=== PATIENT | male | born 1995 | race Caucasian/White ===

== ENCOUNTER 2021-05-07 09:24 | Emergency (ER) | payer SELFPAY ==
[2021-05-07 09:32] VITALS: BP 149/83; PULSE 94; RESP 19; TEMP 36.9; O2SAT 97
[2021-05-07 09:59] VITALS: BP 142/87; PULSE 87; RESP 16; O2SAT 97
--- NOTE | 2021-05-07 10:14 | W.ED.EXTPRO ---
HPI - Extremity Problem General: Chief complaint: Extremity Problem,Nontraumatic Stated complaint: Chest pains going into back Time Seen by Provider: 05/07/21 09:45 Source: patient Mode of arrival: ambulatory History of Present Illness: HPI Narrative: pt was driving to work this am and developed pain in right shoulder Complaint: extremity pain Location: right and upper extremity Quality: aching Associated symptoms: Reports chest pain Review of Systems General: Reports: 10 or more systems reviewed and unremarkable except in HPI and below Card: Reports: chest pain [facility] ED PFSH: Social History Smoking and tobacco status: never smoked Quit status (tobacco): not considering quitting Alcohol intake: never Physical Exam Chest: COMMONS NORMALS: normal inspection of the chest Breast/axilla inspection: Yes no chest deformity, asymmetry, normal contours, no nodules, masses, tenderness Cardio: COMMON NORMALS: regular rate RATE: regular rate Course ED course: Pt presents to ER with CP since 629. Pt has hx of CP and NE x 2. He states they were stress induced. He has chronic reflux and does not sleep well. He is overweight and has difficulty losing weight; all of which could be contributing factors to his present discomfort. Due to his health hx and changes in EKG, non acute it is important to rule out acute NE. Pt will be monitored for serial ekg and we will do CP protocol as well as protonix for his severe and chronic reflux. Follow ups with GI and Cardiology will be necessary. Reevaluation(s): Reevaluation #1: initial trop is 6, Dr. Carney on and I discussed pt findings and health hx. We awaiting pt second troponin. Time: 12:45 Reevaluation #2: Pt CP is resolved after protonix. Second EKG and troponin are both negative. WE will proceed with DC at this time. Pt follow up with GI specialist and Cardiology. Time: 13:28 Vital Signs: Vital signs: Vital Signs Temperature 98.4 F 05/07/21 09:32 Pulse Rate 86 05/07/21 12:41 Respiratory Rate 18 05/07/21 12:41 Blood Pressure 104/47 05/07/21 12:41 Pulse Oximetry 97 05/07/21 12:41 MDM - Extremity (Nontraumatic) Lab Data: Attestation: I reviewed the patient's lab results. Labs: Lab Results 05/07/21 05/07/21 05/07/21 Range/Units 09:55 09:55 09:55 WBC 5.4 (4.0-10.0) 10^3/ uL RBC 4.87 (4.1-5.3) 10^6/u L Hgb 14.5 (11.7-16.6) g/dL Hct 43.9 (42.0-52.0) % MCV 90.1 (80-94) fl MCH 29.8 (28.0-34.0) pg MCHC 33.0 (30.0-36.0) g/dL RDW 12.4 (12.1-15.1) % Plt Count 199 (130-400) 10^3/c mm MPV 11.1 H (7.4-10.4) fL Neut % (Auto) 58.6 % Lymph % (Auto) 25.8 % [place] % (Auto) 9.9 % Eos % (Auto) 3.7 % Baso % (Auto) 0.7 % Neut # (Auto) 3.13 (1.8-7.7) 10^3/u L Lymph # (Auto) 1.4 (0.8-4.8) 10^3/u L [place] # (Auto) 0.5 (0.2-0.9) 10^3/u L Eos # (Auto) 0.2 (0.0-0.8) 10^3/u L Baso # (Auto) 0.0 (0.0-0.1) 10^3/u L Nucleated RBC % (a uto) 0 % Nucleated RBCs # 0.0 /100WBC Sodium 138 (136-145) mmol/L Potassium 4.3 (3.5-5.1) mmol/L Chloride 102 (98-107) mmol/L Carbon Dioxide 24 (22-29) mmol/L Anion Gap 16.3 (5-19) BUN 9 (6-20) mg/dL Creatinine 0.9 (0.7-1.2) mg/dL GFR Calculation 101.2 (90-130) mL/min Glucose 90 (65-115) mg/dL Calculated Osmolal ity 284 L (285-295) mOsm/k g Calcium 8.8 (8.5-10.5) mg/dL Total Bilirubin 0.4 (0.15-1.2) mg/dL AST 23 (0-40) U/L ALT 35 (0-41) U/L Alkaline Phosphata se 66 (40-130) IU/L Troponin T Baselin e 6 (0-15) ng/L Troponin T 120 Min [place] (0-15) ng/L Delta Troponin T (0-10) ABS# Total Protein 6.9 (6.6-8.7) g/dL Albumin 4.2 (3.5-5.2) g/dL Globulin 2.7 (1.3-4.6) g/dL 05/07/21 Range/Units 11:55 WBC (4.0-10.0) 10^3/ uL RBC (4.1-5.3) 10^6/u L Hgb (11.7-16.6) g/dL Hct (42.0-52.0) % MCV (80-94) fl MCH (28.0-34.0) pg MCHC (30.0-36.0) g/dL RDW (12.1-15.1) % Plt Count (130-400) 10^3/c mm MPV (7.4-10.4) fL Neut % (Auto) % Lymph % (Auto) % [place] % (Auto) % Eos % (Auto) % Baso % (Auto) % Neut # (Auto) (1.8-7.7) 10^3/u L Lymph # (Auto) (0.8-4.8) 10^3/u L [place] # (Auto) (0.2-0.9) 10^3/u L Eos # (Auto) (0.0-0.8) 10^3/u L Baso # (Auto) (0.0-0.1) 10^3/u L Nucleated RBC % (a uto) % Nucleated RBCs # /100WBC Sodium (136-145) mmol/L Potassium (3.5-5.1) mmol/L Chloride (98-107) mmol/L Carbon Dioxide (22-29) mmol/L Anion Gap (5-19) BUN (6-20) mg/dL Creatinine (0.7-1.2) mg/dL GFR Calculation (90-130) mL/min Glucose (65-115) mg/dL Calculated Osmolal ity (285-295) mOsm/k g Calcium (8.5-10.5) mg/dL Total Bilirubin (0.15-1.2) mg/dL AST (0-40) U/L ALT (0-41) U/L Alkaline Phosphata se (40-130) IU/L Troponin T Baselin e (0-15) ng/L Troponin T 120 Min [place] 6.00 (0-15) ng/L Delta Troponin T 0 (0-10) ABS# Total Protein (6.6-8.7) g/dL Albumin (3.5-5.2) g/dL Globulin (1.3-4.6) g/dL Imaging Data^: CXR: Radiologist's impression: [address] [address] XRay Report Signed Patient: Sixto Edwards Unit #: [id number] : 1995 Age/Sex: 25 / M ADM Date: 05/07/21 Loc: ER Room/Bed: Attending Dr: Ordering Provider/Ordering MD: Bridget Mcdowell NP Date of Service: 05/07/21 Procedure(s): XR chest 1V portable [id number] Accession Number(s): [id number] Report Number: [id number] WS: [id number] Portable AP upright chest, 05/07/2021 Clinical Data: cp Comparison: Portable chest, 02/07/2017. Findings: No nodules, masses or effusions are seen. The heart is normal. The pulmonary vascularity is not increased. No pneumonia or pneumothorax is seen. Monitor leads are on the chest wall. XR/XR chest 1V portable [id number] Impression: Negative chest. Dictated By: Rosemarie Parkinson MD Signed By: Rosemarie Parkinson MD Signed Date/Time: 05/07/21 1103 DD/ 1102 Discharge Plan Discharge Clinical Impression: Chest pain due to GERD Condition: Stable Prescriptions: New pantoprazole [Protonix] 40 mg tablet,delayed release (DR/EC) 40 mg PO DAILY Qty: 20 RF: 0 Discharge Orders: Discharge ED (Routine); Ordered 05/07/21 Ordered By: Bridget Mcdowell Referrals: Ari Figueroa MD [Physician] - (SCOPE; GERD; BARIATRIC SURGERY) David Rosa MD [Physician] - Jonah Duff FNP [Primary Care Provider] - Discharge Diet: Advance as tolerated Discharge Activity: Increase activity as tolerated Activity Restrictions/Additional Instructions: ELIMINATE GLUTEN AND DAIRY, ACIDIC FOODS, COFFEE, CAFFEINE, SODA EAT WHOLE ORGANIC FOODS SLEEP at an incline Stress reduction You have 6 children to be healthy for! Please return immediately for worsening in symptoms. Stand Alone Forms: Work/School Release Coding Level of Care Code ED Compounding And Finishing Supervisor for Chg Fwd Exam Expanded Problem Focused
--- NOTE | 2021-05-07 10:25 | XR_ITS ---
WS: [id number] Portable AP upright chest, 05/07/2021 Clinical Data: cp Comparison: Portable chest, 02/07/2017. Findings: No nodules, masses or effusions are seen. The heart is normal. The pulmonary vascularity is not increased. No pneumonia or pneumothorax is seen. Monitor leads are on the chest wall. XR/XR chest 1V portable [id number] Impression: Negative chest.
--- NOTE | 2021-05-07 10:26 | ECG_ITS ---
[facility] Test Date: 2021-05-07 Pat Name: Sixto Edwards Department: Room: Gender: Male Campus Coordinator: : 1995 Requested By: Bridget Mcdowell Order Number: [id number] Keenan MD: Carlos Gusman M.D. Measurements Intervals [place] Rate: 76 P: 41 VA: 160 QRS: 45 QRSD: 91 T: -25 QT: 370 QTc: 418 Interpretive Statements SINUS RHYTHM WITH SINUS ARRHYTHMIA ST DEVIATION AND MODERATE T-WAVE ABNORMALITY, CONSIDER INFERIOR ISCHEMIA [-0.1+ mV T-WAVE IN II/aVF] Compared to ECG 05/07/2021 09:42:34 No significant changes Electronically Signed On 05-07-2021 19:32:18 CDT by Carlos Gusman M.D. [id number]
[2021-05-07] MEDS: aspirin 325 mg Tablet PO (10:34)
[2021-05-07] MEDS: pantoprazole 40 mg SDV IVP (10:34)
[2021-05-07 10:39] VITALS: BP 106/76; PULSE 89; RESP 18; O2SAT 97
[2021-05-07 10:42] LABS: Basophils % 0.7 %; Eosinophils # 0.2 10^3/uL (0.0-0.8); Eosinophils % 3.7 %; Hematocrit 43.9 % (42.0-52.0); Hemoglobin 14.5 g/dL (11.7-16.6); Lymphocytes # 1.4 10^3/uL (0.8-4.8); Lymphocytes % 25.8 %; Mean Corpuscular Hemoglobin 29.8 pg (28.0-34.0); Mean Corpuscular Volume 90.1 fl (80-94); Mean Platelet Volume 11.1 fL (7.4-10.4); Monocytes # 0.5 10^3/uL (0.2-0.9); Monocytes % 9.9 %; Neutrophils # 3.13 10^3/uL (1.8-7.7); Neutrophils % 58.6 %; Nucleated Red Blood Cells % 0 %; Platelet Count 199 10^3/cmm (130-400); Red Blood Count 4.87 10^6/uL (4.1-5.3); Red Cell Distribution Width 12.4 % (12.1-15.1); White Blood Count 5.4 10^3/uL (4.0-10.0)
[2021-05-07 10:50] LABS: Alanine Aminotransferase 35 U/L (0-41); Albumin Level 4.2 g/dL (3.5-5.2); Alkaline Phosphatase 66 IU/L (40-130); Anion Gap 16.3 (5-19); Aspartate Amino Transferase 23 U/L (0-40); Blood Urea Nitrogen 9 mg/dL (6-20); Calcium 8.8 mg/dL (8.5-10.5); Carbon Dioxide 24 mmol/L (22-29); Chloride 102 mmol/L (98-107); Globulin 2.7 g/dL (1.3-4.6); Glomerular Filtration Rate 101.2 mL/min (90-130); Glucose 90 mg/dL (65-115); Osmolality Calculated 284 mOsm/kg (285-295); Potassium 4.3 mmol/L (3.5-5.1); Sodium 138 mmol/L (136-145); Total Bilirubin 0.4 mg/dL (0.15-1.2); Total Protein 6.9 g/dL (6.6-8.7)
[2021-05-07 10:52] LABS: Troponin(5th) Baseline 6 ng/L (0-15)
--- NOTE | 2021-05-07 11:06 | PC.PHAR ---
PT STATES HE TAKES NO RX OR OTC MEDICATIONS
[2021-05-07 12:41] VITALS: BP 104/47; PULSE 86; RESP 18; O2SAT 97
[2021-05-07 13:15] LABS: Troponin 5 2HR Delta 0 ABS# (0-10)
[2021-05-07 13:51] VITALS: BP 122/55; PULSE 86; RESP 16; O2SAT 98
--- NOTE | 2021-05-07 16:26 | ECG_ITS ---
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 Measurements Intervals [place] Rate: 95 P: 66 NC: 159 QRS: 58 QRSD: 94 T: -53 QT: 338 QTc: 426 Interpretive Statements SINUS RHYTHM ST DEVIATION AND MODERATE T-WAVE ABNORMALITY, CONSIDER LATERAL ISCHEMIA [-0.1+ mV T WAVE IN I/aVL/V5/V6] ST DEVIATION AND MODERATE T-WAVE ABNORMALITY, CONSIDER INFERIOR ISCHEMIA [-0.1+ mV T WAVE IN II/aVF] Compared to ECG 02/07/2017 15:49:14 Possible ischemia now present Sinus arrhythmia no longer present ST (T wave) deviation no longer present Early repolarization no longer present T-wave abnormality still present Electronically Signed On 05-07-2021 19:40:16 CDT by Carlos Gusman M.D. [id number]
== END 2021-05-07 13:52 ==
PROVIDERS: Emergency Provider Nurse Practitioner Family; PCP Nurse Practitioner Family
DX: K21.9 Gastro-esophageal reflux disease without esophagitis (principal)
CPT/HCPCS: 36415; 71045; 80053; 84484; 85025; 93005; 96374; 99284; C9113

== ENCOUNTER → 2022-06-27 11:58 | Outpatient (BNVA) | payer SELFPAY | PROVIDERS: Visit Provider Nurse Practitioner Family | DX: J22 Unspecified acute lower respiratory infection (principal); B96.89 Other specified bacterial agents as the cause of diseases classified elsewhere; J02.9 Acute pharyngitis, unspecified | CPT/HCPCS: 87071; 87880 ==

== ENCOUNTER 2023-05-09 20:32 | Emergency (ER) | payer SELFPAY ==
[2023-05-09 20:39] VITALS: BP 155/75; PULSE 98; RESP 20; TEMP 36.7; O2SAT 97; BMI 48.7
--- NOTE | 2023-05-09 20:45 | XRR_ITS ---
PROCEDURE INFORMATION: Exam: XR Chest Exam date and time: 05/09/2023 9:18 PM Age: 27 years old Clinical indication: Pain; Chest pressure; Additional info: Cp TECHNIQUE: Imaging protocol: Radiologic exam of the chest. Views: 1 view. COMPARISON: CR XR chest 1V portable [id number] 05/07/2021 10:26 AM FINDINGS: Lungs: Unremarkable. No consolidation. Pleural spaces: Unremarkable. No pleural effusion. No pneumothorax. Heart/Mediastinum: Unremarkable. No cardiomegaly. Bones/joints: Unremarkable. XR/XR chest 1V portable [id number] IMPRESSION: No change, unremarkable
--- NOTE | 2023-05-09 20:45 | ECG_ITS ---
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 Measurements Intervals [place] Rate: 84 P: 12 MN: 132 QRS: 26 QRSD: 93 T: 241 QT: 355 QTc: 421 Interpretive Statements SINUS RHYTHM MODERATE T-WAVE ABNORMALITY, CONSIDER LATERAL ISCHEMIA [-0.1+ mV T-WAVE IN I/aVL/V5/V6] MODERATE T-WAVE ABNORMALITY, CONSIDER INFERIOR ISCHEMIA [-0.1+ mV T-WAVE IN II/aVF] Compared to ECG 05/07/2021 12:10:59 Sinus arrhythmia no longer present T-wave abnormality still present Possible ischemia still present Electronically Signed On 05-10-2023 20:01:47 CDT by Carlos Gusman M.D. [id number]
--- NOTE | 2023-05-09 20:49 | USR_ITS ---
PROCEDURE INFORMATION: Exam: US Abdomen, Limited; Right Upper Quadrant Exam date and time: 05/09/2023 9:04 PM Age: 27 years old Clinical indication: Abdominal pain; Generalized; Additional info: Abd pain TECHNIQUE: Imaging protocol: Real time ultrasound of the abdomen with image documentation. Limited exam focused on the right upper quadrant. COMPARISON: No relevant prior studies available. FINDINGS: Liver: The liver is enlarged to at least 22 cm and is diffusely echogenic consistent with steatosis. Gallbladder: The gallbladder is somewhat small (patient not NPO) but is large enough for evaluation. No stones or sludge. No surrounding edema. No sonographic Leigh sign. Biliary ducts: The common bile duct measures 2-3 mm which is normal. Pancreas: Limited views of the pancreas are unremarkable. Right kidney: The right kidney measures 11.3 cm and is unremarkable. US/US gall bladder [id number] IMPRESSION: 1. Hepatic steatosis and hepatomegaly. 2. No gallstones or biliary obstruction
[2023-05-09 20:56] VITALS: BP 155/75; PULSE 97; RESP 13; O2SAT 95
[2023-05-09 21:01] LABS: Basophils % 0.3 %; Eosinophils # 0.2 10^3/uL (0.0-0.8); Eosinophils % 2.2 %; Lymphocytes # 2.9 10^3/uL (0.8-4.8); Lymphocytes % 31.3 %; Mean Corpuscular HGB Conc 33.6 g/dL (30-55); Mean Corpuscular Volume 89.4 fl (82-101); Monocytes # 0.7 10^3/uL (0.2-0.9); Monocytes % 7.2 %; Neutrophils # 5.37 10^3/uL (1.8-7.7); Neutrophils % 57.8 %; Nucleated Red Blood Cells % 0 %; Platelet Count 217 10^3/cmm (157-399); Red Cell Distribution Width 12.2 % (12.1-15.1); White Blood Count 9.28 10^3/uL (3.29-11.43)
--- NOTE | 2023-05-09 21:06 | W.ED.CHESTPA ---
HPI - Chest Pain General: Chief Complaint: Chest Pain Stated Complaint: CP Time Seen by Provider: 05/09/23 20:37 Source: patient Mode of arrival: ambulatory Limitations: no limitations History of Present Illness: 27-year-old male states that he has been having right-sided chest pain along with right upper quadrant pain over the last 3 weeks. States pains been sharp in nature worse with eating. He had no nausea or vomiting. States pain is also worse with palpation. He denies any fevers. Associated symptoms: Reports abdominal pain; Deny dyspnea, fever(s), nausea or vomiting Review of Systems Const: Denies: fever(s) or chills ENMT: Denies: throat pain or dental pain Card: Reports: chest pain Resp: Denies: dyspnea GI: Reports: abdominal pain; Denies: nausea, vomiting or diarrhea : Denies: dysuria Musc: Denies: neck pain or back pain Skin/Breast: Denies: rash Neuro: Denies: headache(s) Psych: Denies: depression PFSH ED PFSH: Social History Smoking and tobacco status: current every day smoker cigarettes Packs smoked per day: 0.5 Quit status (tobacco): not considering quitting Alcohol intake: never Substance/Drug Use: never Physical Exam Const: COMMON NORMALS: no acute distress, patient oriented x3 and healthy appearing HENMT: COMMON NORMALS: normocephalic and atraumatic HEAD & SCALP: normocephalic and atraumatic Neck/C-Spine: COMMON NORMALS: full ROM and supple Chest: COMMONS NORMALS: normal inspection of the chest and normal palpation of entire chest wall Resp: COMMON NORMALS: normal respiratory effort, No retractions, No use of accessory muscles and clear to auscultation bilaterally AUSCULTATION: clear to auscultation bilaterally Cardio: COMMON NORMALS: regular rate, regular rhythm and No murmurs present (Cardio) RATE: regular rate RHYTHM: regular rhythm GI: COMMON NORMALS: Normal to inspection, nondistended, normoactive bowel sounds present, Soft to palpation and no masses PALPATION: Yes Soft to palpation and Yes Tenderness to palpation present (GI) Details: RUQ Extremity: COMMON NORMALS: normal to inspection and full ROM Neuro: COMMON NORMALS: patient oriented x3, moves all extremities and no focal motor deficits Psych: COMMON NORMALS: mental status grossly normal, Normal thought process present and cooperative THOUGHT PROCESS: Normal thought process present Skin: COMMON NORMALS: no rashes or lesions noted and no wounds GENERAL SKIN EXAM: no rashes or lesions noted Course Vital Signs: Vital signs: Vital Signs Temperature 98.0 F 05/09/23 20:39 Pulse Rate 97 05/09/23 20:56 Respiratory Rate 16 05/09/23 21:08 Blood Pressure 155/75 05/09/23 20:56 Pulse Oximetry 96 05/09/23 21:08 Oxygen Delivery Me thod Room Air 05/09/23 20:56 MDM - Chest Pain Medical Decision Making Patient presents here with abdominal pain could be gastric related he has Protonix on his med list but states he has not taken it in quite some time we will write him a new prescription Protonix his ultrasound here was normal blood work is normal we will get him follow-up with surgery as no signs of acute coronary event he is return if worsening he understands agrees to plan. Medical Records I reviewed the patient's medical records. Lab Data I reviewed the patient's lab results. 05/09/23 20:55 05/09/23 20:55 Radiology Impressions Chest X-Ray 05/09/23 20:45 IMPRESSION: No change, unremarkable Gallbladder Ultrasound 05/09/23 20:49 IMPRESSION: 1. Hepatic steatosis and hepatomegaly. 2. No gallstones or biliary obstruction Laboratory Results WBC 9.28 10^3/uL (3.29-11.43) 05/09/23 20:55 RBC 4.70 10^6/uL (3.85-5.65) 05/09/23 20:55 Hgb 14.10 g/dL (11.27-16.99) 05/09/23 20:55 Hct 42.0 % (37-53) 05/09/23 20:55 MCV 89.4 fl (82-101) 05/09/23 20:55 MCH 30.0 pg (27-33) 05/09/23 20:55 MCHC 33.6 g/dL (30-55) 05/09/23 20:55 RDW 12.2 % (12.1-15.1) 05/09/23 20:55 Plt Count 217 10^3/cmm (157-399) 05/09/23 20:55 MPV 10.0 fL (7.4-10.4) 05/09/23 20:55 Neut % (Auto) 57.8 % 05/09/23 20:55 Lymph % (Auto) 31.3 % 05/09/23 20:55 [place] % (Auto) 7.2 % 05/09/23 20:55 Eos % (Auto) 2.2 % 05/09/23 20:55 Baso % (Auto) 0.3 % 05/09/23 20:55 Neut # (Auto) 5.37 10^3/uL (1.8-7.7) 05/09/23 20:55 Lymph # (Auto) 2.9 10^3/uL (0.8-4.8) 05/09/23 20:55 [place] # (Auto) 0.7 10^3/uL (0.2-0.9) 05/09/23 20:55 Eos # (Auto) 0.2 10^3/uL (0.0-0.8) 05/09/23 20:55 Baso # (Auto) 0.0 10^3/uL (0.0-0.1) 05/09/23 20:55 Nucleated RBC % (auto) 0 % 05/09/23 20:55 Nucleated RBCs # 0.0 /100WBC 05/09/23 20:55 Sodium 139 mmol/L (136-145) 05/09/23 20:55 Potassium 3.8 mmol/L (3.5-5.1) 05/09/23 20:55 Chloride 101 mmol/L (98-107) 05/09/23 20:55 Carbon Dioxide 28 mmol/L (22-29) 05/09/23 20:55 Anion Gap 13.8 (5-19) 05/09/23 20:55 BUN 10 mg/dL (6-20) 05/09/23 20:55 Creatinine 1.1 mg/dL (0.7-1.2) 05/09/23 20:55 GFR Calculation 79.1 mL/min (90-130) L 05/09/23 20:55 Glucose 97 mg/dL (65-115) 05/09/23 20:55 Calculated Osmolality 287 mOsm/kg (285-295) 05/09/23 20:55 Calcium 9.5 mg/dL (8.5-10.5) 05/09/23 20:55 Total Bilirubin 0.3 mg/dL (0.15-1.2) 05/09/23 20:55 AST 28 U/L (0-40) 05/09/23 20:55 ALT 43 U/L (0-41) H 05/09/23 20:55 Alkaline Phosphatase 52 U/L (40-130) 05/09/23 20:55 Troponin T Baseline 6 ng/L (0-15) 05/09/23 20:55 Troponin T 120 Minute 6.00 ng/L (0-15) 05/09/23 22:32 Total Protein 6.7 g/dL (6.6-8.7) 05/09/23 20:55 Albumin 4.4 g/dL (3.5-5.2) 05/09/23 20:55 Globulin 2.3 g/dL (1.3-4.6) 05/09/23 20:55 Lipase 23 U/L (13-60) 05/09/23 20:55 EKG Data EKG 1: I personally reviewed and interpreted this EKG as follows: EKG interpretation date: 05/09/23 EKG interpretation time: 20:43 Interpretation: nsr hr [address] or t wave abnormalities qrs 90 q tc 391 Discharge Plan Discharge Patient Disposition: Home Clinical Impression: Chest pain, Abdominal pain Condition: Stable Prescriptions: New pantoprazole [Protonix] 40 mg tablet,delayed release (DR/EC) 40 mg PO DAILY Qty: 60 0RF No Action doxycycline hyclate 100 mg capsule 100 mg PO BID 10 Days Qty: 20 0RF Rx Instructions: Take with food albuterol sulfate 90 mcg/actuation HFA aerosol inhaler 2 puff inhalation QID Qty: 8.5 0RF Rx Instructions: 2 puffs inhaled every 4-6 hours as needed Protonix 40 mg tablet,delayed release (DR/EC) 40 mg PO DAILY Qty: 20 0RF Discharge Orders: Discharge ED (Routine); Ordered 05/09/23 Ordered By: Aiden Roberts Referrals: Mann Olsen MD [Physician] - 1-3 days Discharge Diet: Advance as tolerated Discharge Activity: Resume usual activity Patient Instructions: Chest Pain (ED), Abdominal Pain (ED) Coding Level of Care Code ED Technical Customer Support Specialist for Dereje Simon
[2023-05-09 21:08] VITALS: RESP 16; O2SAT 96
[2023-05-09] MEDS: morphine 4 mg/mL SDV 1 mL IVP (21:08)
[2023-05-09] MEDS: ondansetron 2 mg/ML SDV 2 mL 4 MG IVP (21:08)
[2023-05-09 21:24] LABS: Alanine Aminotransferase 43 U/L (0-41); Albumin Level 4.4 g/dL (3.5-5.2); Alkaline Phosphatase 52 U/L (40-130); Anion Gap 13.8 (5-19); Aspartate Amino Transferase 28 U/L (0-40); Blood Urea Nitrogen 10 mg/dL (6-20); Calcium 9.5 mg/dL (8.5-10.5); Carbon Dioxide 28 mmol/L (22-29); Chloride 101 mmol/L (98-107); Globulin 2.3 g/dL (1.3-4.6); Glomerular Filtration Rate 79.1 mL/min (90-130); Glucose 97 mg/dL (65-115); Lipase 23 U/L (13-60); Osmolality Calculated 287 mOsm/kg (285-295); Potassium 3.8 mmol/L (3.5-5.1); Sodium 139 mmol/L (136-145); Total Bilirubin 0.3 mg/dL (0.15-1.2); Total Protein 6.7 g/dL (6.6-8.7)
[2023-05-09 21:26] LABS: Troponin(5th) Baseline 6 ng/L (0-15)
--- NOTE | 2023-05-09 22:45 | ECG_ITS ---
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 Measurements Intervals [place] Rate: 89 P: 33 [place]: 162 QRS: 26 QRSD: 90 T: 238 QT: 344 QTc: 420 Interpretive Statements SINUS RHYTHM ST DEVIATION AND MODERATE T-WAVE ABNORMALITY, CONSIDER LATERAL ISCHEMIA [-0.1+ mV T-WAVE IN I/aVL/V5/V6] ST DEVIATION AND MODERATE T-WAVE ABNORMALITY, CONSIDER INFERIOR ISCHEMIA [-0.1+ mV T-WAVE IN II/aVF] Compared to ECG 05/07/2021 12:10:59 Sinus arrhythmia no longer present T-wave abnormality still present Possible ischemia still present Electronically Signed On 05-10-2023 20:32:04 CDT by Carlos Gusman M.D. [id number] f
[2023-05-09 23:14] LABS: Troponin 5 2HR Delta 0 ABS# (0-10)
[2023-05-09 23:19] VITALS: BP 121/75; PULSE 86; RESP 17; O2SAT 94
--- NOTE | 2023-05-11 09:55 | DCPLANNER ---
Addendum entered by Aysha Wells 05/16/23 14:36: shopper insights manager received the following message from general surgery regarding follow up appointment: Called pt no vm 05/15/23. Mailed pt a letter and fa pack. On 05/12/23 @ 09:17 Elliott Bauman Wrote To General Surgery Front Off Called pt no vm 05/12/23. On 05/11/23 @ 10:02 Elliott Bauman Wrote To General Surgery Front Off Called pt no vm 05/11/23. Pt is self pay Addendum entered by Aysha Wells 05/16/23 14:35: shopper insights manager received the following message from the general surgery clinic regarding follow up appointment. Original Note: shopper insights manager had message to schedule a follow up appointment for patient with general surgery. shopper insights manager sent patients information to the front office staff at general surgery. Patients information will be printed and reviewed. Clinic will call patient with appointment information.
== END 2023-05-09 23:24 | disposition home or self-care (01) ==
PROVIDERS: Emergency Provider Emergency Medicine
DX: R07.9 Chest pain, unspecified (principal); R10.11 Right upper quadrant pain; F17.210 Nicotine dependence, cigarettes, uncomplicated
CPT/HCPCS: 71045; 76705; 80053; 83690; 84484; 85025; 93005; 96374; 96375; 99285; J2270; J2405

== ENCOUNTER 2023-09-03 14:19 | Emergency (ER) | payer SELFPAY ==
--- NOTE | 2023-09-03 14:25 | XRR_ITS ---
PROCEDURE INFORMATION: Exam: XR Right Shoulder Exam date and time: 09/03/2023 2:32 PM Age: 28 years old Clinical indication: Right; Patient HX: RT shoulder pain with limited rom after lifting injury TECHNIQUE: Imaging protocol: Radiologic exam of the right shoulder. Views: 2 or more views. COMPARISON: CR XR chest 1V portable [id number] 05/09/2023 9:18 PM FINDINGS: Bones/joints: No fracture or dislocation. Soft tissues: No acute findings. XR/XR shoulder RT min 2V* [id number] IMPRESSION: No acute findings.
[2023-09-03 14:26] VITALS: BP 150/83; PULSE 85; RESP 17; O2SAT 94
--- NOTE | 2023-09-03 14:48 | ED_ITS ---
HPI - Extremity Problem General: Chief complaint: Extremity Injury, Upper Stated complaint: right shoulder pains Time Seen by Provider: 09/03/23 14:42 Source: patient Mode of arrival: ambulatory Limitations: no limitations History of Present Illness: 28-year-old male states that he is at wo [place] on and was lifting bags out of a can last back was extremely heavy and he did not expect and states he felt a pop in his right shoulder states send right shoulder pain since then. He states he went bowling yesterday and his right shoulder is hurting much worse he rates pain 8 out of 10 worse with movement Associated symptoms: Deny chest pain, fever(s) or rash Review of Systems Const: Denies: fever(s) or chills ENMT: Denies: throat pain or dental pain Card: Denies: chest pain Resp: Denies: dyspnea GI: Denies: abdominal pain Musc: Reports: extremity pain; Denies: neck pain or back pain Skin/Breast: Denies: rash Neuro: Denies: headache(s) PFSH ED PFSH: Social History Smoking and tobacco/nicotine status: current every day tobacco/nicotine user cigarettes Packs smoked per day: 0.5 Quit status (tobacco/nicotine): not considering quitting Alcohol intake: never Substance/Drug Use: never Physical Exam Const: COMMON NORMALS: no acute distress, patient oriented x3 and healthy appearing HENMT: COMMON NORMALS: normocephalic and atraumatic HEAD & SCALP: normocephalic and atraumatic Eye: COMMON NORMALS: conjunctivae normal CONJUNCTIVA: Yes conjunctivae normal Neck/C-Spine: COMMON NORMALS: full ROM and supple Chest: COMMONS NORMALS: normal inspection of the chest Resp: COMMON NORMALS: normal respiratory effort Extremity: COMMON NORMALS: normal to inspection and full ROM NARRATIVE EXTREMITY EXAM: Tenderness over right shoulder right trapezius does have pain with range of motion but does have full range of motion distal pulses sensation intact. Neuro: COMMON NORMALS: patient oriented x3, moves all extremities and no focal motor deficits Psych: COMMON NORMALS: mental status grossly normal, Normal thought process present and cooperative THOUGHT PROCESS: Normal thought process present Skin: COMMON NORMALS: no rashes or lesions noted and no wounds GENERAL SKIN EXAM: no rashes or lesions noted Course Vital Signs: Vital signs: Vital Signs Pulse Rate 85 09/03/23 14:26 Respiratory Rate 17 09/03/23 14:26 Blood Pressure 150/83 09/03/23 14:26 Pulse Oximetry 94 09/03/23 14:26 Oxygen Delivery Me thod Room Air 09/03/23 14:26 MDM - Extremity (Nontraumatic) Medical Decision Making Patient presents here with a right shoulder strain x-rays negative we will place him on Naprosyn and Robaxin will give him follow-up with Ortho he is return if worsening he understands agrees to plan. XR interpretation done by ED provider, pending radiology final review ED provider radiology interpretation(s): xr r shoulder: no acute abnormality Discharge Plan Discharge Patient Disposition: Home Clinical Impression: Right shoulder strain Condition: Stable Prescriptions: New methocarbamol 750 mg tablet 750 mg PO Q6H PRN (Reason: spasms) Qty: 20 0RF naproxen [Naprosyn] 500 mg tablet 500 mg PO BID PRN (Reason: pain) Qty: 20 0RF No Action doxycycline hyclate 100 mg capsule 100 mg PO BID 10 Days Qty: 20 0RF Rx Instructions: Take with food albuterol sulfate 90 mcg/actuation HFA aerosol inhaler 2 puff inhalation QID Qty: 8.5 0RF Rx Instructions: 2 puffs inhaled every 4-6 hours as needed Protonix 40 mg tablet,delayed release (DR/EC) 40 mg PO DAILY Qty: 20 0RF Protonix 40 mg tablet,delayed release (DR/EC) 40 mg PO DAILY Qty: 60 0RF Discharge Orders: Discharge ED (Routine); Ordered 09/03/23 Ordered By: Aiden Roberts Discharge Diet: Advance as tolerated Discharge Activity: Resume usual activity Patient Instructions: Shoulder Sprain (ED), Shoulder Pain (ED) Coding Level of Care Code ED Station Mechanic Apprentice for Dereje Simon
[2023-09-03] MEDS: HYDROcodone-acetaminophen 5-325 mg Tablet 1 TAB PO (14:55)
[2023-09-03 15:06] VITALS: BP 152/80; PULSE 80; O2SAT 98
--- NOTE | 2023-09-04 10:22 | DCPLANNER ---
Message was sent to ortho clinic on 09/04/23 at [facility]. [facility] to contact patient.
== END 2023-09-03 15:08 | disposition home or self-care (01) ==
PROVIDERS: Emergency Provider Emergency Medicine
DX: S46.911A Strain of unspecified muscle, fascia and tendon at shoulder and upper arm level, right arm, initial encounter (principal); F17.210 Nicotine dependence, cigarettes, uncomplicated; X50.0XXA Overexertion from strenuous movement or load, initial encounter
CPT/HCPCS: 73030; 99283

== ENCOUNTER → 2023-11-07 14:00 | Outpatient (BNVA) | payer SELFPAY | PROVIDERS: PCP Nurse Practitioner; Referring Provider Dermatology; Visit Provider Dermatology | DX: Z13.6 Encounter for screening for cardiovascular disorders (principal) | CPT/HCPCS: 80061; 82947; 83036 ==

== ENCOUNTER 2023-11-14 16:04 | Outpatient (CLI) | payer SELFPAY ==
[2023-11-14 17:09] LABS: Basophils # 0.1 10^3/uL (0.0-0.1); Basophils % 0.5 %; Eosinophils # 0.3 10^3/uL (0.0-0.8); Eosinophils % 3.1 %; Hematocrit 47.1 % (37-53); Lymphocytes # 2.4 10^3/uL (0.8-4.8); Lymphocytes % 25.8 %; Mean Corpuscular HGB Conc 32.3 g/dL (30-55); Mean Corpuscular Hemoglobin 29.1 pg (27-33); Mean Corpuscular Volume 90.2 fl (82-101); Mean Platelet Volume 10.4 fL (7.4-10.4); Monocytes # 0.6 10^3/uL (0.2-0.9); Monocytes % 6.9 %; Neutrophils # 5.72 10^3/uL (1.8-7.7); Neutrophils % 62.7 %; Nucleated Red Blood Cells % 0 %; Platelet Count 261 10^3/cmm (157-399); Red Blood Count 5.22 10^6/uL (3.85-5.65); Red Cell Distribution Width 12.9 % (12.1-15.1); White Blood Count 9.12 10^3/uL (3.29-11.43)
[2023-11-14 17:55] LABS: Alanine Aminotransferase 25 U/L (0-41); Albumin Level 4.3 g/dL (3.5-5.2); Alkaline Phosphatase 70 U/L (40-130); Anion Gap 14.3 (5-19); Aspartate Amino Transferase 20 U/L (0-40); Blood Urea Nitrogen 13 mg/dL (6-20); Calcium 9.3 mg/dL (8.5-10.5); Carbon Dioxide 25 mmol/L (22-29); Chloride 103 mmol/L (98-107); Globulin 2.9 g/dL (1.3-4.6); Glomerular Filtration Rate 99.1 mL/min (90-130); Glucose 87 mg/dL (65-115); Osmolality Calculated 285 mOsm/kg (285-295); Potassium 4.3 mmol/L (3.5-5.1); Sodium 138 mmol/L (136-145); Total Bilirubin 0.3 mg/dL (0.15-1.2); Total Protein 7.2 g/dL (6.6-8.7)
[2023-11-14 21:14] LABS: Hepatitis A Antibody IgM Non-Reactive (Nonreactive); Hepatitis B Core AB, Total Non-Reactive (Nonreactive); Hepatitis B Surface AB < 3.5 (11.5-1000); Hepatitis B Surface Antigen Non-Reactive (Nonreactive); Hepatitis C Virus Antibody Non-Reactive (Nonreactive)
[2023-11-17 12:24] LABS: Quantiferon Mitogen 8.11 IU/mL; Quantiferon Nil 0.05 IU/mL; Quantiferon Plus TB1 0.03 IU/mL; Quantiferon Plus TB2 0.06 IU/mL; Quantiferon TB Gold NEGATIVE (NEGATIVE)
== END 2023-11-14 16:05 | disposition home or self-care (01) ==
PROVIDERS: PCP Nurse Practitioner; Visit Provider Dermatology
DX: Z79.899 Other long term (current) drug therapy (principal); L30.9 Dermatitis, unspecified; L40.0 Psoriasis vulgaris
CPT/HCPCS: 36415; 80053; 85025; 86480; 86705; 86706; 86709; 86803; 87340

== ENCOUNTER 2024-07-03 20:47 | Emergency (ER) | payer SELFPAY ==
[2024-07-03 20:51] VITALS: BP 161/107; PULSE 86; RESP 18; TEMP 36.6; O2SAT 98; BMI 45.6
--- NOTE | 2024-07-03 20:52 | XRR_ITS ---
PROCEDURE INFORMATION: Exam: XR Right Shoulder Exam date and time: 07/03/2024 9:38 PM Age: 28 years old Clinical indication: Pain; Shoulder; Right; Additional info: Injury TECHNIQUE: Imaging protocol: Radiologic exam of the right shoulder. Views: 2 or more views. COMPARISON: CR XR shoulder RT min 2V* [id number] 09/03/2023 2:32 PM FINDINGS: Bones/joints: No evidence of acute fracture or dislocation. No erosive disease. No significant degenerative change. Soft tissues: Normal. XR/XR shoulder RT min 2V* [id number] IMPRESSION: No acute bony injury.
[2024-07-03 20:54] VITALS: PULSE 95; O2SAT 95
[2024-07-03] MEDS: orphenadrine 30 mg/mL Inj 2 mL 60 MG IM (21:36)
[2024-07-03] MEDS: ketorolac 60 mg/2 mL INJ IM (21:37)
--- NOTE | 2024-07-03 21:40 | ED_ITS ---
HPI - Extremity Problem General: Chief complaint: Extremity Injury, Upper Stated complaint: Rt Shoulder Pain Time Seen by Provider: 07/03/24 20:55 Source: patient Mode of arrival: ambulatory Limitations: no limitations History of Present Illness: Patient is a 28-year-old male presenting to the emergency department complaining of right shoulder pain beginning this afternoon. He states he was lifting a heavy engine, when he had a sudden pulling sensation to his right shoulder joint. He notes that it radiates up the trapezius muscle also to the posterior aspect of the shoulder. States his range of motion has been limited due to the pain. He has not taken anything for the pain at this time. MD Complaint: joint pain Onset (ago): hour(s) Pain Consistency: constant Location: right and upper extremity (Shoulder) Radiation: proximal Exacerbating factors: range of motion Associated symptoms: Reports no associated symptoms; Deny chest pain, fever(s) or rash Related Data Previous Rx's Medication Instructions Recorded pantoprazole 40 mg tablet,delayed 40 mg PO DAILY #20 tabs 05/07/21 release (Protonix) methocarbamol 750 mg tablet 750 mg PO Q8H 5 days #15 tabs 07/03/24 Allergies Allergy/AdvReac Type Severity Reaction Status Date / Time ibuprofen Allergy Mild ALGY-Hives Verified 10/24/23 14:10 Review of Systems General: Reports: 10 or more systems reviewed and unremarkable except in HPI and below Const: Denies: fever(s) or chills Card: Denies: chest pain Resp: Denies: dyspnea or productive cough GI: Denies: abdominal pain, nausea, vomiting or diarrhea : Denies: flank pain Musc: Reports: joint pain and limited range of motion; Denies: neck pain, back pain, extremity pain, extremity swelling, joint swelling, joint redness, joint warmth or muscle weakness Skin/Breast: Denies: rash Neuro: Denies: headache(s), numbness in extremities or weakness in extremities PFSH ED PFSH: Social History Smoking and tobacco/nicotine status: current every day tobacco/nicotine user cigarettes Packs smoked per day: 0.5 Quit status (tobacco/nicotine): not considering quitting Alcohol intake: never Substance/Drug Use: never Physical Exam Const: COMMON NORMALS: no acute distress, patient oriented x3, no limitations, healthy appearing, alert and well nourished HENMT: COMMON NORMALS: normocephalic and atraumatic HEAD & SCALP: normocephalic and atraumatic Neck/C-Spine: COMMON NORMALS: full ROM, supple and no meningeal signs Resp: COMMON NORMALS: normal respiratory effort and No use of accessory muscles Extremity: COMMON NORMALS: normal to inspection, capillary refill normal, no joint enlargement and no clubbing, cyanosis or edema NARRATIVE EXTREMITY EXAM: Range of motion limited with active abduction of the shoulder as well as flexion and extension at the right shoulder. There is tenderness to palpation of the shoulder joint itself, but this extends up the trapezius and along the posterior scapular spine and along the clavicle. There is no signs of trauma or deformity. Distal radial pulse intact. Distal sensations intact. Neuro: COMMON NORMALS: patient oriented x3, moves all extremities, no focal motor deficits and no sensory deficits noted SENSORIUM/ORIENTATION: Yes alert MENINGEAL SIGNS: Yes no meningeal signs Skin: COMMON NORMALS: no rashes or lesions noted GENERAL SKIN EXAM: no rashes or lesions noted Course Vital Signs: Vital signs: Vital Signs Temperature 97.9 F 07/03/24 20:51 Pulse Rate 86 07/03/24 20:51 Respiratory Rate 18 07/03/24 20:51 Blood Pressure 161/107 07/03/24 20:51 Pulse Oximetry 98 07/03/24 20:51 Oxygen Delivery Me thod Room Air 07/03/24 20:51 MDM - Extremity (Nontraumatic) Medical Decision Making Patient injured his shoulder while lifting a large engine today, he did have reproducible tenderness to palpation of the shoulder joint as well as to surrounding areas. Suspicion at this time is for a strain. An x-ray did not demonstrate any dislocations or fractures. He does note improvement after receiving shot of muscle relaxer and Toradol. Will send prescriptions and, encouraged to avoid heavy lifting while symptomatic and do other conservative therapies. With any worsening of pain, he will follow-up with primary care to obtain an MRI, as I cannot definitively rule out any rotator cuff pathology at this time. XR interpretation done by ED provider, pending radiology final review ED provider radiology interpretation(s): X-ray right shoulder does not demonstrate any acute abnormalities. Discharge Plan Discharge Patient Disposition: Home Clinical Impression: Right shoulder strain Qualifiers: Encounter type: initial encounter Qualified Code(s): S46.911A - Strain of unspecified muscle, fascia and tendon at shoulder and upper arm level, right arm, initial encounter Condition: Stable Prescriptions: New methocarbamol 750 mg tablet 750 mg PO Q8H 5 Days Qty: 15 0RF No Action Protonix 40 mg tablet,delayed release (DR/EC) 40 mg PO DAILY Qty: 20 0RF Discharge Orders: Discharge ED (Routine); Ordered 07/03/24 Ordered By: Mann Arciniega Referrals: Moni Lawton FNP [Primary Care Provider] - Patient Instructions: Shoulder Sprain (ED) Activity Restrictions/Additional Instructions: Take muscle relaxers. Ice and heat. Rest and recovery, may take ibuprofen or Tylenol. Avoid lifting anything heavy while symptomatic. If you continue to have pain follow-up with your primary care provider to obtain an MRI for further evaluation. Coding Level of Care Code ED Ampoule Filler And Sealer for Dereje Simon
[2024-07-03 22:54] VITALS: BP 109/90; PULSE 84; O2SAT 96
[2024-07-04 00:17] VITALS: BP 133/91; PULSE 82; O2SAT 95
== END 2024-07-03 23:35 | disposition home or self-care (01) ==
PROVIDERS: Emergency Provider Physician Assistant; PCP Nurse Practitioner
DX: S46.911A Strain of unspecified muscle, fascia and tendon at shoulder and upper arm level, right arm, initial encounter (principal); X50.0XXA Overexertion from strenuous movement or load, initial encounter; F17.210 Nicotine dependence, cigarettes, uncomplicated
CPT/HCPCS: 73030; 96372; 99284; J1885; J2360

== ENCOUNTER 2025-02-26 16:08 | Outpatient (CLI) | payer SELFPAY | END 2025-02-26 16:09 | disposition home or self-care (01) | PROVIDERS: PCP Nurse Practitioner; Visit Provider Nurse Practitioner Family | DX: L40.0 Psoriasis vulgaris (principal); Z79.899 Other long term (current) drug therapy | CPT/HCPCS: 36415; 86480 ==

== ENCOUNTER 2025-04-10 17:33 | Emergency (ER) | payer BC, SELFPAY ==
--- OUTSIDE RECORDS SUMMARY | 2025-04-10 17:36 | XMS_ITS | Encounter Summary ---
Author Organization [facility] Address [address] [place] [address] Care Team Providers Care Batch Mixing Truck Driver Name Role Phone Non-Staff, Physician Primary Care Provider Unava ilable Encounter Details Date Type Department Care Team (Latest Contact Info) Description 07/29/2002 Outpatient Historical [facility] Medicine [place] [address] [phone] Wallace Galarza MD [address] [phone] ABDOMINAL PAIN UNSPEC SITE (Primary Dx) Social History Tobacco Use Types Packs/Day Years Used Date Smoking Tobacco: Never Assessed Sex and Gender Information Value Date Recorded Sex Assigned at Not on file 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
--- OUTSIDE RECORDS SUMMARY | 2025-04-10 17:36 | XMS_ITS | Encounter Summary ---
Author Organization [facility] Address [address] [place] [address] Care Team Providers Care Relocation Commissioner Name Role Phone Non-Staff, Physician Primary Care Provider Unava ilable Encounter Details Date Type Department Care Team (Latest Contact Info) Description 06/19/2001 Outpatient Historical [facility] Medicine [place] [address] [phone] Wallace Galarza MD [address] [phone] Attention deficit disorder with hyperactivity(314.01 ) (Primary Dx) Social History Tobacco Use Types Packs/Day Years Used Date Smoking Tobacco: Never Assessed Sex and Gender Information Value Date Recorded Sex Assigned at Not on file Legal Sex Male 4:26 AM DIRECTOR INDEX Gender Identity Not on file Sexual Orientation Not on file documented as of this encounter Plan of Treatment Not on file documented as of this encounter Visit Diagnoses Diagnosis Attention deficit disorder with hyperactivity(314.01)- Primary Attention deficit disorder with hyperactivity documented in this encounter Care Teams Relocation Commissioner Relationship Specialty Start Date End Date Non-Staff, Physician NO ADDRESS ON FILE PCP - General 08/08/14 documented as of this encounter
--- OUTSIDE RECORDS SUMMARY | 2025-04-10 17:36 | XMS_ITS | Clinical Summary ---
Author Organization [facility] on Address [address] [place] [address] [place] [address] Phone Care Team Providers Care Lease Examiner Name Role Phone Non-Staff, Physician Primary Care Provider Unava ilable Allergies Active Allergy Reactions Criticality Noted Date Comments Ibuprofen Swelling Low 07/19/2014 Medications HYDROcodone-jeannine taminophen (NORCO) 5-325 mg tablet Take 1 Tab by mouth every 4 hours as needed for Pain. Max Daily Amount: 6 Tabs 10 Tab None 11/08/2014 Active oxyCODONE-aceta minophen (PERCOCET) 10-325 mg Tablet Take 1 Tablet by mouth every 4 hours as needed for Pain, Severe. Max Daily Amount: 6 Tablets 30 Tablet 02/17/2017 Active Active Problems Problem Noted Date Diagnosed Date Left facial swelling 02/17/2017 Dental caries 02/17/2017 Wrist sprain 04/04/2011 Immunizations Immunization Administration Dates Next Due (M-M-R II/PRIORIX)(12 MO UP) MEASLES, MUMPS AND RUBELLA VIRUS VACCINE, 0.5 ML IM/SUBCUT 04/12/1999,08/07/1996 Dt Dtp Dtap Vaccine 04/12/1999, 7,05/02/1996,1993,1993 HIB, Unspecified Formulation 05/02/1996,01/05/19 94,1993 Hepatitis B Vaccine 05/02/1996,1993,1992 IPV/OPV 06/27/1997, 6,01/05/1994,1993 Social History Tobacco Use Types Packs/Day Years Used Date Smoking Tobacco: Every Day Cigarettes Smokeless Tobacco: Current Chew Alcohol Use Standard Drinks/Week Comments No 0 (1 standard drink = 0.6 oz pur e alcohol) Sex and Gender Information Value Date Recorded Sex Assigned at Not on file 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 Gender Identity Not on file Sexual Orientation Not on file Occupation Industry Job Start Date Job End Date Not on file Not on file Not on file Not on file Last Filed Vital Signs Vital Sign Reading Time Taken Comments Blood Pressure 122/79 02/17/2017 11:24 AM CDT Pulse 86 02/17/2017 11:24 AM CDT Temperature 37.1 C (98.7 F) 02/16/2017 7:57 PM CDT Respiratory Rate 18 02/17/2017 12:08 AM CDT Oxygen Saturation 98% 02/17/2017 11:24 AM CDT Inhaled Oxygen Concentration - - Weight 113.4 kg (250 lb) 02/16/2017 8:03 PM CDT Height 172.7 cm (5' 8 ) 02/16/2017 8:03 PM CDT Body Mass Index 38.01 02/16/2017 8:03 PM CDT Plan of Treatment Health Maintenance Due Date Last Done Comments DTAP/TDAP/TD VACCINES (6 - Tdap) 2004 04/12/1999, 06/27/1997, 05/02/1996, Additional history exists HPV VACCINES (1 - Male 3-dos e series) 2008 INFLUENZA VACCINE (#1) 2025 HEPATITIS B VACCINES Completed 05/02/1996, 1993, 1993 Care Teams Lease Examiner Relationship Specialty Start Date End Date Non-Staff, Physician NO ADDRESS ON FILE PCP - General 08/08/14
--- OUTSIDE RECORDS SUMMARY | 2025-04-10 17:36 | XMS_ITS | Encounter Summary ---
Author Organization [facility] Address [address] [place] [address] Care Team Providers Care Associate Teacher Name Role Phone Non-Staff, Physician Primary Care Provider Unava ilable Encounter Details Date Type Department Care Team (Latest Contact Info) Description 07/02/2003 Outpatient Historical [address] [phone] Jaye Serra MD [address] [place] [address], [phone] DERMATITIS NOS (Primary Dx) Social History Tobacco Use Types Packs/Day Years Used Date Smoking Tobacco: Never Assessed Sex and Gender Information Value Date Recorded Sex Assigned at Not on file 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
--- OUTSIDE RECORDS SUMMARY | 2025-04-10 17:37 | XMS_ITS | Encounter Summary ---
Author Organization [facility] Address [address] [place] [address] Care Team Providers Care Railroad Crane Operator Name Role Phone Non-Staff, Physician Primary Care Provider Unava ilable Encounter Details Date Type Department Care Team (Late st Contact Info) Description 02/17/2017 Ancillary Orders [facility] [place] [phone] Robert Archibald Jr., SHANNEN NO ADDRESS ON FILE Dental caries Social History Tobacco Use Types Packs/Day Years Used Date Smoking Tobacco: Every Day Cigarettes Smokeless Tobacco: Current Chew Alcohol Use Standard Drinks/Week Comments No 0 (1 standard drink = 0.6 oz pur e alcohol) Sex and Gender Information Value Date Recorded Sex Assigned at Not on file Legal Sex Male 4:26 AM CHIEF GUARD Gender Identity Not on file Sexual Orientation Not on file Occupation Industry Job Start Date Job End Date Not on file Not on file Not on file Not on file documented as of this encounter Plan of Treatment Not on file documented as of this encounter Results * XR PANOREX (03/09/2017 11:27 AM CDT) Anatomical Region Laterality Modality Head Computed Radiogr aphy Narrative 03/14/2017 11:40 PM CDT Dental caries us Robert Archibald Jr., DMD DIAGNOSTIC IMAGING ORDERABLES Final Result documented in this encounter Visit Diagnoses Diagnosis Dental caries Unspecified dental caries documented in this encounter Care Teams Railroad Crane Operator Relationship Specialty Start Date End Date Non-Staff, Physician NO ADDRESS ON FILE PCP - General 08/08/14 documented as of this encounter
--- OUTSIDE RECORDS SUMMARY | 2025-04-10 17:37 | XMS_ITS | Encounter Summary ---
Author Organization [facility] Address [address] [place] [address] Care Team Providers Care Offset Press Operator Name Role Phone Non-Staff, Physician Primary Care Provider Unava ilable Encounter Details Date Type Department Care Team (Latest Contact Info) Description 10/11/2001 Outpatient Historical [facility] Medicine [place] [address] [phone] Wallace Galarza MD [address] [phone] ATTN DEFICIT W HYPERACT (Primary Dx) Social History Tobacco Use Types Packs/Day Years Used Date Smoking Tobacco: Never Assessed Sex and Gender Information Value Date Recorded Sex Assigned at Not on file 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
--- OUTSIDE RECORDS SUMMARY | 2025-04-10 17:37 | XMS_ITS | Encounter Summary ---
Author Organization [facility] Address [address] [place] [address] Care Team Providers Care Gluing Machine Offbearer Name Role Phone Non-Staff, Physician Primary Care Provider Unava ilable Encounter Details Date Type Department Care Team (Latest Contact Info) Description 01/21/2002 Outpatient Historical [facility] Medicine [place] [address] [phone] Wallace Galarza MD [address] [phone] ATTN DEFICIT W HYPERACT (Primary Dx) Social History Tobacco Use Types Packs/Day Years Used Date Smoking Tobacco: Never Assessed Sex and Gender Information Value Date Recorded Sex Assigned at Not on file Legal Sex Male 4:26 AM MEDIA RELATIONS DIRECTOR Gender Identity Not on file Sexual Orientation Not on file documented as of this encounter Plan of Treatment Not on file documented as of this encounter Visit Diagnoses Diagnosis Attention deficit disorder with hyperactivity(314.01)- Primary Attention deficit disorder with hyperactivity documented in this encounter Care Teams Gluing Machine Offbearer Relationship Specialty Start Date End Date Non-Staff, Physician NO ADDRESS ON FILE PCP - General 08/08/14 documented as of this encounter
--- OUTSIDE RECORDS SUMMARY | 2025-04-10 17:37 | XMS_ITS | Encounter Summary ---
Author Organization [facility] Address [address] [place] [address] Care Team Providers Care Manager Video Name Role Phone Non-Staff, Physician Primary Care Provider Unava ilable Encounter Details Date Type Department Care Team (Latest Contact Info) Description 12/18/2001 Outpatient Historical [facility] Medicine [place] [address] [phone] Wallace Galarza MD [address] [phone] ATTN DEFICIT NONHYPERACT (Primary Dx) Social History Tobacco Use Types Packs/Day Years Used Date Smoking Tobacco: Never Assessed Sex and Gender Information Value Date Recorded Sex Assigned at Not on file Legal Sex Male 4:26 AM ETCHER HAND Gender Identity Not on file Sexual Orientation Not on file documented as of this encounter Plan of Treatment Not on file documented as of this encounter Visit Diagnoses Diagnosis Attention deficit disorder without mention of hyperactivity- Primary documented in this encounter Care Teams Manager Video Relationship Specialty Start Date End Date Non-Staff, Physician NO ADDRESS ON FILE PCP - General 08/08/14 documented as of this encounter
--- OUTSIDE RECORDS SUMMARY | 2025-04-10 17:37 | XMS_ITS | Encounter Summary ---
Author Organization [facility] Address [address] [place] [address] Care Team Providers Care Anodic Operator Name Role Phone Non-Staff, Physician Primary Care Provider Unava ilable Encounter Details Date Type Department Care Team (Latest Contact Info) Description 09/05/2001 Outpatient Historical 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
--- OUTSIDE RECORDS SUMMARY | 2025-04-10 17:37 | XMS_ITS | Clinical Summary ---
Author Organization [facility] Address [address] [place]: Epic Prelude ADT [place] [address] Care Team Providers Care Trimmer Machine Name Role Phone Non-Staff, Physician Primary Care Provider Unava ilable Allergies Active Allergy Reactions Criticality Noted Date Comments Ibuprofen Swelling Low 07/19/2014 Medications HYDROcodone-jeannine taminophen (NORCO) 5-325 mg tablet Take 1 Tab by mouth every 4 hours as needed for Pain. Max Daily Amount: 6 Tabs 10 Tablet None 11/08/2014 Active oxyCODONE-aceta minophen (PERCOCET) 10-325 mg Tablet Take 1 Tablet by mouth every 4 hours as needed for Pain, Severe. Max Daily Amount: 6 Tablets 30 Tablet 0 02/17/2017 Active Active Problems Problem Noted Date Diagnosed Date Dental caries 02/17/2017 Left facial swelling 02/17/2017 Wrist sprain 04/04/2011 Immunizations Immunization Administration Dates Next Due (M-M-R II/PRIORIX)(12 MO UP) MEASLES, MUMPS AND RUBELLA VIRUS VACCINE, 0.5 ML IM/SUBCUT 04/12/1999,08/07/1996 Dt Dtp Dtap Vaccine 04/12/1999, 7,05/02/1996,1993,1993 HIB, Unspecified Formulation 05/02/1996,01/05/19 94,1993 Hepatitis B Vaccine 05/02/1996,1993,1992 IPV/OPV 06/27/1997, 6,01/05/1994,1993 Social History Tobacco Use Types Packs/Day Years Used Date Smoking Tobacco: Every Day Cigarettes Smokeless Tobacco: Current Alcohol Use Standard Drinks/Week Comments No 0 (1 standard drink = 0.6 oz pur e alcohol) Sex and Gender Information Value Date Recorded Sex Assigned at Not on file Legal Sex Male 3:42 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
--- NOTE | 2025-04-10 17:42 | ECG_ITS ---
[facility] 2025-[facility]10 Pat Name: Sixto Edwards Department: Room: Gender: Male Will Call Clerk: : 1995 Requested By: Sanaz Farrell Order Number: [id number] Reading MD: Measurements Intervals [place] Rate: 72 P: 43 WA: 149 QRS: 60 QRSD: 95 T: -58 QT: 378 QTc: 416 Interpretive Statements SINUS RHYTHM MODERATE T-WAVE ABNORMALITY, CONSIDER INFERIOR ISCHEMIA [-0.1+ mV T-WAVE IN II/aVF] [id number] [id number]
[2025-04-10 17:43] VITALS: BP 123/84; PULSE 89; RESP 17; TEMP 36.6; O2SAT 97; BMI 49.4
[2025-04-10 19:50] LABS: Hematocrit 43.5 % (37-53); Hemoglobin 14.80 g/dL (11.27-16.99); Mean Corpuscular HGB Conc 34.0 g/dL (30-55); Mean Corpuscular Hemoglobin 30.1 pg (27-33); Mean Corpuscular Volume 88.4 fl (82-101); Nucleated Red Blood Cells % 0 %; Platelet Count 242 10^3/cmm (157-399); Red Blood Count 4.92 10^6/uL (3.85-5.65); White Blood Count 9.19 10^3/uL (3.29-11.43)
--- NOTE | 2025-04-10 19:55 | ECG_ITS ---
[facility]: 2025-[facility]10 Pat Name: Sixto Edwards Department: Room: Gender: Male Meat Trimmer: : 1995 Requested By: Taya Weinstein Order Number: [id number] Hussein MD: Gerardo Bass M.D. Measurements Intervals [place] Rate: 82 P: 60 TX: 148 QRS: 62 QRSD: 94 T: -45 QT: 377 QTc: 442 Interpretive Statements SINUS RHYTHM MODERATE T-WAVE ABNORMALITY, CONSIDER INFERIOR ISCHEMIA [-0.1+ mV T-WAVE IN II/aVF] Compared to ECG 04/10/2025 17:42:13 No significant changes Electronically Signed On 04-12-2025 08:51:58 CDT by Gerardo Bass M.D. [id number]
[2025-04-10 20:11] LABS: Troponin(5th) Baseline < 6 ng/L (0-15)
[2025-04-10 20:18] LABS: Alanine Aminotransferase 33 U/L (0-41); Albumin Level 4.4 g/dL (3.5-5.2); Alkaline Phosphatase 77 U/L (40-130); Anion Gap 14.7 (5-19); Aspartate Amino Transferase 28 U/L (0-40); Blood Urea Nitrogen 11 mg/dL (6-20); Calcium 9.2 mg/dL (8.5-10.5); Carbon Dioxide 26 mmol/L (22-29); Chloride 99 mmol/L (98-107); Creatinine Clr Calc Pharmacy 137.6362; Globulin 2.6 g/dL (1.3-4.6); Glucose 100 mg/dL (65-115); NT Pro B Type Natriuretic Pept < 36 pg/mL (0-125); Osmolality Calculated 281 mOsm/kg (285-295); Potassium 3.7 mmol/L (3.5-5.1); Sodium 136 mmol/L (136-145); Total Protein 7.0 g/dL (6.6-8.7)
[2025-04-10 20:24] VITALS: BP 147/82; PULSE 77; RESP 17; O2SAT 94
--- NOTE | 2025-04-10 20:33 | ED_ITS ---
HPI - Chest Pain 2 General: Chief Complaint: Chest Pain Stated Complaint: chest pressure,tingling hands Time Seen by Provider: 04/10/25 20:23 History of Present Illness: Sixto Edwards is a 37-year-old morbidly obese male that presents to the emergency department with left-sided chest pain Patient reports onset of symptoms 1400 today and he still has some pain. It follows along the 10th rib and is reproducible. There is no shortness of breath with it. Onset of symptoms while working today. 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 He is often lifting heavy objects and pushing heavy loads. Patient reports a history of pleurisy. He states that this pain is similar. He also reports a history of possible AMI. Cardiology has cleared him as of 2022. Patient has a history of third and has been on pantoprazole for some time. He states his GERD symptoms are well under control and this pain is different. Associated symptoms: Deny abdominal pain, dyspnea, fever(s), nausea, palpitations or vomiting Related Data Previous Rx's ?Medication ?Instructions ?Recorded pantoprazole 40 mg tablet,delayed 40 mg PO DAILY #20 t abs 05/07/21 release (Protonix) Allergies Allergy/AdvReac Type Severity Reaction Status Date / Time ibuprofen Allergy Mild ALGY-Hives Verified 10/24/23 14:10 Review of Systems 2 General: Reports: 10 or more systems reviewed and unremarkable except in HPI and below Const: Denies: fever(s), chills, change in appetite, change in weight, fatigue or malaise Eyes: Denies: change in vision, eye discomfort, eye discharge or eye redness ENMT: Denies: throat pain, enlarged tonsils, odynophagia, hoarseness, ear or mastoid pain, ear discharge, change in hearing, tinnitus, nasal discharge, nasal congestion, post nasal drip or sinus pain Card: Reports: chest pain; Denies: palpitations, irregular heart rhythm, edema, dyspnea on exertion, orthopnea or leg pain with exertion Resp: Denies: dyspnea, productive cough, non-productive cough, wheezing, stridor or chest congestion GI: Denies: abdominal pain, nausea, vomiting, dysphagia, diarrhea, constipation, bloating, GI cramping or hematochezia : Denies: flank pain, dysuria, urinary frequency, urinary urgency, urinary hesitancy, oliguria or hematuria Musc: Denies: neck pain, back pain, extremity pain, joint pain, joint swelling, joint redness, joint warmth or muscle weakness Skin/Breast: Denies: rash, pruritus, erythema, photosensitivity or new lesions Neuro: Denies: headache(s), numbness in extremities, weakness in extremities, sensory changes, lack of coordination, difficulty walking, frequent falls, dizziness, confusion, Slurred speech present, difficulty communicating thoughts, seizure-like activity or involuntary movements Endo: Denies: polyuria, polydipsia or tired all the time Pro/Lymph: Denies: easy bruising or easy bleeding PFSH ED 2 PFSH: Social History Smoking and tobacco/nicotine status: current every day tobacco/nicotine user cigarettes Packs smoked per day: 0.5 Quit status (tobacco/nicotine): not considering quitting Alcohol intake: never Substance/Drug Use: never Physical Exam 2 Const: COMMON NORMALS: no acute distress, patient oriented x3 and alert G ENERAL APPEARANCE: cooperative ORIENTATION/CONSCIOUSNESS: Yes awake, Yes oriented to person, Yes oriented to place and Yes oriented to time HENMT: COMMON NORMALS: normocephalic and atraumatic HEAD & SCALP: n ormocephalic and atraumatic FACE & SINUS: normal facial exam MOUTH: Normal oral and palatal mucosa present THROAT: posterior oropharynx normal Eye: COMMON NORMALS: Equal, round and reactive pupils present, EOMs intact bilaterally, conjunctivae normal and no scleral icterus GENERAL EYE: a ppearance normal, both eyes and all related structures ALIGNMENT: Yes alignment normal PERIORBITAL: periorbital findings normal CONJUNCTIVA: Yes conjunctivae normal PUPIL: Yes Equal, round and reactive pupils present Neck/C-Spine: COMMON NORMALS: full ROM GENERAL: Yes normal visual inspection Lymph: LYMPHATIC: no lymphadenopathy noted Chest: COMMONS NORMALS: normal inspection of the chest Breast/axilla inspection: Yes no chest deformity, asymmetry, normal contours, no nodules, masses, tenderness Resp: COMMON NORMALS: normal respiratory effort, No retractions, No use of accessory muscles and clear to auscultation bilaterally EFFORT & INSPECTION: Yes able to speak in complete sentences and Yes symmetric chest movement A USCULTATION: clear to auscultation bilaterally Cardio: COMMON NORMALS: regular rate, regular rhythm and Peripheral pulses 2+ throughout RATE: regular rate RHYTHM: regular rhythm PERIPHERAL PULSES: Peripheral pulses 2+ throughout GI: COMMON NORMALS: Normal to inspection, nondistended, normoactive bowel sounds present, Soft to palpation, non-tender and No hepatosplenomegaly present INSPECTION: Yes normal to inspection AUSCULTATION: Yes normoactive bowel sounds PALPATION: Yes Soft to palpation and Yes No hepatosplenomegaly present RECTAL EXAM: Yes deferred Extremity: COMMON NORMALS: normal to inspection GENERAL: Yes normal exam except as noted Neuro: COMMON NORMALS: patient oriented x3 SENSORIUM/ORIENTATION: Yes alert, Yes oriented to person, Yes oriented to place and Yes oriented to time CRANIAL NERVES: Yes CN normal except as noted Psych: COMMON NORMALS: mental status grossly normal, Normal thought process present, cooperative, activity/motor behavior normal, denies homicidal ideation and denies suicidal ideation THOUGHT PROCESS: Normal thought process present Skin: COMMON NORMALS: no rashes or lesions noted, no wounds and turgor normal GENERAL SKIN EXAM: no rashes or lesions noted and turgor normal Course 2 Vital Signs: Vital signs: Vital Signs Temperature 97.9 F 04/10/25 17:43 Pulse Rate 77 04/10/25 20:24 Respiratory Rate 17 04/10/25 20:24 Blood Pressure 147/82 04/10/25 20:24 Pulse Oximetry 94 04/10/25 20:24 Oxygen Delivery Me thod Room Air 04/10/25 20:24 MDM - Chest Pain Medical Decision Making Differential diagnosis includes pleurisy, pneumonia, angina, AMI, GERD, PE He currently rates his pain 4/10 and reports that it is reproducible. He also reports that similar to his episode of pleurisy years ago Patient did undergo EKG at 1742. It reveals a sinus rhythm at a rate of 72 beats a minute and a QTc of 416. There is reported moderate T wave abnormality but this is unchanged from April 2023 EKG. His heart score is 1 point for obesity risk factor. His initial laboratory evaluation included a CBC, CMP, troponin, BNP. I added an additional lipase. His initial troponin was less than 6. His 2-hour delta was less than 6. His repeat EKG revealed rhythm of 82 beats minute and a QTc of 416. EKG again rates are moderate T wave abnormality but again this is unchanged from April 2023. Patient was given a GI cocktail and his symptoms did resolve. We are going to recommend that he follow-up with his primary care doctor for reevaluation of today's complaints. Patient is agreeable. At this time no further diagnostics are warranted. Lab Data 04/10/25 19:36 04/10/25 19:36 Laboratory Results WBC 9.19 10^3/uL (3.29-11.43) 04/10/25 19:36 RBC 4.92 10^6/uL (3.85-5.65) 04/10/25 19:36 Hgb 14.80 g/dL (11.27-16.99) 04/10/25 19:36 Hct 43.5 % (37-53) 04/10/25 19:36 MCV 88.4 fl (82-101) 04/10/25 19:36 MCH 30.1 pg (27-33) 04/10/25 19:36 MCHC 34.0 g/dL (30-55) 04/10/25 19:36 RDW 12.4 % (12.1-15.1) 04/10/25 19:36 Plt Count 242 10^3/cmm (157-399) 04/10/25 19:36 MPV 10.2 fL (7.4-10.4) 04/10/25 19:36 Neut % (Auto) 58.3 % 04/10/25 19:36 Lymph % (Auto) 28.9 % 04/10/25 19:36 [place] % (Auto) 6.4 % 04/10/25 19:36 Eos % (Auto) 4.7 % 04/10/25 19:36 Baso % (Auto) 0.7 % 04/10/25 19:36 Neut # (Auto) 5.36 10^3/uL (1.8-7.7) 04/10/25 19:36 Lymph # (Auto) 2.7 10^3/uL (0.8-4.8) 04/10/25 19:36 [place] # (Auto) 0.6 10^3/uL (0.2-0.9) 04/10/25 19:36 Eos # (Auto) 0.4 10^3/uL (0.0-0.8) 04/10/25 19:36 Baso # (Auto) 0.1 10^3/uL (0.0-0.1) 04/10/25 19:36 Nucleated RBC % (auto) 0 % 04/10/25 19:36 Nucleated RBCs # 0.0 /100WBC 04/10/25 19:36 Sodium 136 mmol/L (136-145) 04/10/25 19:36 Potassium 3.7 mmol/L (3.5-5.1) 04/10/25 19:36 Chloride 99 mmol/L (98-107) 04/10/25 19:36 Carbon Dioxide 26 mmol/L (22-29) 04/10/25 19:36 Anion Gap 14.7 (5-19) 04/10/25 19:36 BUN 11 mg/dL (6-20) 04/10/25 19:36 Creatinine 1.1 mg/dL (0.7-1.2) 04/10/25 19:36 GFR Calculation 78.1 mL/min (90-130) L 04/10/25 19:36 Glucose 100 mg/dL (65-115) 04/10/25 19:36 Calculated Osmolality 281 mOsm/kg (285-295) L 04/10/25 19:36 Calcium 9.2 mg/dL (8.5-10.5) 04/10/25 19:36 Total Bilirubin 0.2 mg/dL (0.15-1.2) 04/10/25 19:36 AST 28 U/L (0-40) 04/10/25 19:36 ALT 33 U/L (0-41) 04/10/25 19:36 Alkaline Phosphatase 77 U/L (40-130) 04/10/25 19:36 Troponin T Baseline < 6 ng/L (0-15) 04/10/25 19:36 Troponin T 120 Minute < 6.0 ng/L (0-15) 04/10/25 21:23 Delta Troponin T 0 ABS# (0-10) 04/10/25 21:23 NT-Pro-B Natriuret Pep < 36 pg/mL (0-125) 04/10/25 19:36 Total Protein 7.0 g/dL (6.6-8.7) 04/10/25 19:36 Albumin 4.4 g/dL (3.5-5.2) 04/10/25 19:36 Globulin 2.6 g/dL (1.3-4.6) 04/10/25 19:36 Lipase 21 U/L (13-60) 04/10/25 21:23 All radiology interpretation(s) finalized by discharge Discharge Plan Discharge Patient Disposition: Home Clinical Impression: Chest pain, Chronic GERD Condition: Stable Prescriptions: No Action Protonix 40 mg tablet,delayed release (DR/EC) 40 mg PO DAILY Qty: 20 0RF Discharge Orders: Discharge ED (Routine); Ordered 04/10/25 Ordered By: Taya Valdez Referrals: Moni Lawton FNP [Primary Care Provider, Nurse Practitioner] Discharge Diet: Advance as tolerated Discharge Activity: Resume usual activity Patient Instructions: Chest Pain (ED), GERD (Gastroesophageal Reflux Disease) (ED), Opioid Safety, Pain Management, Patient Portal & Cristian Instructions Activity Restrictions/Additional Instructions: Please return to the event for new, concerning, worsening symptoms Print Language: Albanian Coding Level of Care Code ED Hospital Medicine Director for Dereje Simon
[2025-04-10 21:30] VITALS: BP 121/88; PULSE 76; RESP 18; O2SAT 92
[2025-04-10] MEDS: lidocaine 2% viscous 15 ML, aluminum-mag hydrox-simethicon 30 ML, sucralfate oral liq 1 GM PO (21:41)
[2025-04-10 22:06] LABS: Troponin 5 2HR < 6.0 ng/L (0-15); Troponin 5 2HR Delta 0 ABS# (0-10)
[2025-04-10 22:08] LABS: Lipase 21 U/L (13-60)
[2025-04-10 22:49] VITALS: BP 120/76; PULSE 74; O2SAT 74
== END 2025-04-10 22:50 | disposition home or self-care (01) ==
PROVIDERS: Emergency Provider Nurse Practitioner; PCP Nurse Practitioner
DX: R07.9 Chest pain, unspecified (principal); K21.9 Gastro-esophageal reflux disease without esophagitis; F17.210 Nicotine dependence, cigarettes, uncomplicated
CPT/HCPCS: 36415; 80053; 83690; 83880; 84484; 85025; 93005; 99284; J9999